=== PATIENT | male | born 1965 | race Caucasian/White ===

== ENCOUNTER 2016-09-04 10:45 | Emergency (ER) | payer SELFPAY ==
--- NOTE | 2016-09-04 10:51 | ED Physician Documentation ---
Chest Pain - HISTORIAN Historian: patient - HPI Chief Complaint: Chest Pain Onset: hours (3-4) Timing: gradual onset, still present (10/27) Duration: constant Last known Well Date: 09/04/16 Last Known Well Time: 06:00 Last known Well Code/Unknown Code: Known Context: emotional upset Quality: burning, aching Chest Pain Radiation: no radiation Chest Pain Signs/Symptoms: nausea. denies: vomiting, diaphoresis, dyspnea Worsened By: nothing Relieved By: nothing Further Comments: yes (patient states that he has been under a lot of stress recently related mostly to family problems. He has been having some intermittent chest pain in the substernal to left anterior chest area for several weeks. Started when his stress level became higher. Pain has been intermittent, no modifying factors noted. No dyspnea or diaphoresis noted. Pain will last for seconds to hours.) - ROS CONST: none MS/LYMPH: none GI/: abdominal pain (indigestion) SKIN/ENDO: none NEURO/PSYCH: anxiety (stress) - PAST HX VT risk factors: no pertinent history DVT/PE Risk Factors: none Neuro deficit: none GI disease: other (indigestion) Lung disease: none Surgeries/Procedures: none Immunizations: referred to PCP Allergies/Adverse Reactions: Allergies Allergy/AdvReac Type Severity Reaction Status Date / Time No Known Allergies Allergy Verified 08/31/12 04:55 - SOCIAL HX Smoking History: less than 1 pack/day (3/4 ppd) Alcohol Use: none Drug Use: none - FAMILY HX Family HX: CAD over 55, other (CVA over 65yo) - VITAL SIGNS Vital Signs: Vital Signs Temp Pulse Resp BP Pulse Ox 133/81 08/31/12 06:28 - REVIEWED ASSESSMENTS Nursing Assessment Reviewed: Yes Vitals Reviewed: Yes Chest Pain Physical Exam - EXAM General Appearance: alert, mild distress EENT: ENT inspection normal, no signs of dehydration Neck: nml inspection, no carotid bruit. No: JVD present, lymphadenopathy, subcutaneous emphysema Respiratory: no resp. distress, chest non-tender, nml breath sounds, resp.distress. No: wheezes, rales, rhonchi CVS: reg. rate & rhythm, no murmur, no gallop, no friction rub, pulses full, pulses equal Abdomen: soft, no organomegaly, normal bowel sounds, no distension, tenderness ( epigastric area) Skin: warm/dry Extremities: non-tender Neuro: mood/affect nml, cognition normal Discharge Clincal Impression: Atypical chest pain Additional Instructions: Start taking some Omperazole 20mg once a day to see if it will help with chest pain. Try to get some exercise. Consider seeing a counselor. If the pain continues to see your primary care provider. Condition: Stable Disposition: 01 HOME, SELF-CARE Decision to Admit: NO Date of Decison to Admit: 09/04/16 Decision Time: 12:39
[2016-09-04] MEDS ORDERED: ASPIRIN 81 MG CHEW TAB PO ONE (10:54)
[2016-09-04 11:05] LABS: BASOPHILS % 0.4 (0.0-1.5); EOSINOPHILS % 1.2 % (0.0-6.8); MEAN CORPUSCULAR HEMOGLOBIN 29.2 pg (28.0-34.0); MEAN CORPUSCULAR VOLUME 86.4 fl (80.0-100.0); MONOCYTES % 3.5 % (0.0-11.0); NEUTROPHILS # 7.9 # k/uL (1.4-7.7)
[2016-09-04 11:24] LABS: eGFR (African) > 60; eGFR (Non-African) > 60
[2016-09-04 11:34] VITALS: BP 150/95
[2016-09-04] MEDS ORDERED: MAG HYDROX/AL HYDROX/SIMETH 30 ML, Lidocaine 2%Visc 15ml 20 MG, PHENobarb/HYOSCY/ATROPI... PO ONE ×3 (11:49)
[2016-09-04] MEDS ORDERED: MAGNESIUM HYDROXIDE/AL HYDROX 30 ML UDC PO ONE (11:50)
[2016-09-04] MEDS ORDERED: Lidocaine 2%Visc 15ml 20 MG/ML UDC ONE (11:50)
--- NOTE | 2016-09-04 14:32 | Diagnostic Imaging Report ---
[facility] [id number] [facility].[address] [id number] Report Submission Date: Sep 04, 2016 11:39:48 AM CDT Patient Study Name: ABDELRAHMAN JUDGE Date: Sep 04, 2016 11:08:36 AM CDT Modality Type: CR Gender: M Description: CHEST : 65 Institution: [facility] Physician [facility] - ER Chest 2 views The exam: September 04, 2016. Clinical history: Lightheadedness and dizziness. Chest pain and smoker for 30 years. Findings: No comparison studies are provided. The cardiac and mediastinal silhouettes are normal. The lungs are clear. There is no evidence of infiltrate or effusion. The trachea is midline and the aortic arch contour is normal. The pulmonary arteries are somewhat prominent bilaterally. Impression: No acute cardiopulmonary abnormality. Electronically signed on Sep 04, 2016 11:39:48 AM CDT by: Michael QUIÑONEZ
== END 2016-09-04 12:30 | disposition home or self-care (01) ==
LOC: ED 10:45
DX: R07.9 Chest pain, unspecified (principal)
CPT/HCPCS: 71020; 80053; 82550; 84484; 85025; A9270; 99283; S1016